=== PATIENT | female | born 1970 | race Two or more races ===

== ENCOUNTER 2017-09-15 12:57 | Observation (INO) | payer BC, OTHER ==
[~2017-09-15] VITALS: Ht 152.4 cm; Wt 71.0 kg
[~2017-09-15 12:57] MED LIST: CEFAZOLIN 1,000 MG ONE; DEXAMETHASONE 4 MG/ML, 1ML ONE; GLYCOPYRROLATE 0.2MG/1ML, 5ML ONE; KETOROLAC 30 MG/1 ML ONE; NEOSTIGMINE 1 MG/ML, 10ML ONE; ONDANSETRON 2MG/ML, 2ML ONE; ROCURONIUM 10MG/ML,5ML ONE; SUCCINYLCHOLINE 20 MG/ML, 10ML ONE
[2017-09-15] MEDS ORDERED: SODIUM CHLORIDE FLUSH 10ML SYR IVF ONE (14:30)
[2017-09-15 14:34] LABS: BASOPHILS # (AUTO) 0.02 x10^3/uL (0-0.1); BASOPHILS % (AUTO) 0 % (0-1); EOSINOPHILS # (AUTO) 0.05 x10^3/uL (0-0.4); EOSINOPHILS % (AUTO) 1 % (1-7); LYMPHOCYTES # (AUTO) 2.53 x10^3/uL (1-3.4); LYMPHOCYTES % (AUTO) 45 % (22-44); MD NO; MEAN CORPUSCULAR HEMOGLOBIN 29.9 pg (27.0-34.8); MEAN CORPUSCULAR HGB CONC 33.7 g/dL (32.4-35.8); MEAN CORPUSCULAR VOLUME 88.7 fL (80-100); MEAN PLATELET VOLUME 8.8 fL (7.4-10.4); MONOCYTES # (AUTO) 0.39 x10^3/uL (0.2-0.8); MONOCYTES % (AUTO) 7 % (2-9); NEUTROPHILS # (AUTO) 2.59 x10^3/uL (1.8-6.8); NEUTROPHILS % (AUTO) 46 % (42-75); PLATELET COUNT 312 x10^3/uL (130-400); RED BLOOD COUNT 4.69 x10^6/uL (3.82-5.3); RED CELL DISTRIBUTION WIDTH 14.3 % (9.6-15.2)
[2017-09-15 14:42] LABS: ALANINE AMINOTRANSFERASE 40 U/L (12-78); ALBUMIN 3.4 g/dL (3.4-5.0); ANION GAP 5 mmol/L (5-15); CALCIUM 8.9 mg/dL (8.5-10.1); CHLORIDE 108 mmol/L (98-107); CREATININE 0.66 mg/dL (0.55-1.02)
[2017-09-15 14:45] LABS: ALKALINE PHOSPHATASE 178 U/L (45-117); BILIRUBIN,TOTAL 0.5 mg/dL (0.2-1.0); TOTAL PROTEIN 7.5 g/dL (6.4-8.2)
[2017-09-15] MEDS ORDERED: SINCALIDE (KINEVAC) 5 MCG ONE (15:50)
[2017-09-15] MEDS ORDERED: ONDANSETRON 2MG/ML, 2ML ONE (18:10)
[2017-09-15] MEDS ORDERED: MORPHINE SULFATE 4 MG/ML, 1ML ONE (18:11)
[2017-09-15] MEDS ORDERED: SODIUM CHLORIDE 0.9% 1,000 ML IV ONE (18:12)
[2017-09-15] MEDS ORDERED: MORPHINE SULFATE 4 MG/ML, 1ML IVPush ONE ×2 (18:30→23:00)
[2017-09-15] MEDS ORDERED: ONDANSETRON 2MG/ML, 2ML IVPush ONE (18:30)
[2017-09-15] MEDS ORDERED: BUPIVACAINE/PF-EPI 0.5% 1:200K ONE (18:48)
[2017-09-15 19:22] LABS: HCG UR SG 1.019 (1.003-1.030)
[2017-09-15] MEDS ORDERED: BUPIVACAINE/PF 0.5% ONE (19:25)
[2017-09-15] MEDS ORDERED: MIDAZOLAM 1 MG/ML, 2ML ONE (19:26)
[2017-09-15] MEDS ORDERED: FENTANYL PF 100 MCG/2ML ONE ×3 (19:26→20:37)
[2017-09-15] MEDS ORDERED: PROPOFOL 10 MG/ML, 20ML ONE (19:30)
[2017-09-15] MEDS ORDERED: BUPIVACAINE/PF 0.5% INFIL ONE (19:51)
[2017-09-15] MEDS ORDERED: ONDANSETRON 2MG/ML, 2ML IV PRN (20:00)
[2017-09-15] MEDS ORDERED: hydrALAzine 20 MG/ML, 1ML IV PRN (20:00)
[2017-09-15] MEDS ORDERED: PROMETHAZINE 12.5 MG SUPP PR PRN (20:00)
[2017-09-15] MEDS ORDERED: LABETALOL 5MG/ML, 20ML IV PRN (20:00)
[2017-09-15] MEDS ORDERED: MIDAZOLAM 1 MG/ML, 2ML IV PRN (20:00)
[2017-09-15] MEDS ORDERED: ALBUTEROL SULFATE 2.5 MG/3 ML NPPB PRN (20:00)
[2017-09-15] MEDS ORDERED: PROMETHAZINE 25 MG/ML, 1ML IV PRN (20:00)
[2017-09-15] MEDS ORDERED: ACETAMINOPHEN 325 MG TABLET PO PRN (20:00)
[2017-09-15] MEDS ORDERED: LORazepam 2 MG/ML, 1ML IVPush PRN (20:00)
[2017-09-15] MEDS ORDERED: OXYcodone 5 MG/5 ML ORAL.SOL UDC PO PRN ×2 (20:00→23:00)
[2017-09-15] MEDS ORDERED: ONDANSETRON ODT 8 MG PO PRN (20:00)
[2017-09-15] MEDS ORDERED: MORPHINE SULFATE 4 MG/ML, 1ML IVPush PRN (20:00)
[2017-09-15] MEDS ORDERED: MEPERIDINE/PF 25MG/0.5ML IVPush PRN (20:00)
[2017-09-15] MEDS ORDERED: OXYcodone 5 MG/5 ML ORAL.SOL UDC ONE (20:37)
[2017-09-15] MEDS ORDERED: ACETAMINOPHEN 650 MG/20.3 ML UDC ONE (20:37)
[2017-09-15] MEDS ORDERED: PROMETHAZINE 25 MG/ML, 1ML ONE (20:46)
[2017-09-15] MEDS: FENTANYL PF 100 MCG/2ML IV PRN ×2 (20:50→21:09)
[2017-09-15 21:30] VITALS: BP 104/65
[2017-09-15 22:27] VITALS: BP 104/65
[2017-09-15] MEDS ORDERED: OXYC-302 PO (22:50)
[2017-09-15] MEDS ORDERED: LACTATED RINGERS 1,000 ML IV SCH (23:00)
[2017-09-16] VITALS: BP 103/60
[2017-09-16 03:52] VITALS: BP 110/67
[2017-09-16 04:08] VITALS: BP 116/62
== END 2017-09-16 03:57 | disposition home or self-care (01) ==
LOC: ED 18:39 → EDIP 18:40 → 4NOR 21:54
PROVIDERS: ADMIT Surgery; ATTEND Surgery
DX: K82.8 Other specified diseases of gallbladder (principal); K81.0 Acute cholecystitis
CPT/HCPCS: 36415; 47564; 78227; 80053; 81025; 83690; 85025; 88304; 96374; 96375; 96376; 99285; A9537; C9898; G0378; J0330; J0690; J1100; J1885; J2250; J2405; J2550; J2704; J2710; J2805; J3010; J3490; J7120